=== PATIENT | male | born 1970 ===

== ENCOUNTER 2020-05-30 21:39 | Observation (INO) | payer OTHER ==
[~2020-05-30] VITALS: Ht 167.6 cm; Wt 68.0 kg
[2020-05-30] MEDS ORDERED: KETOROLAC TROMETHAMINE 30 MG/ML VIAL IV STA (22:07)
[2020-05-30] MEDS ORDERED: ONDANSETRON HCL INJ 2MG/ML 2ML 2 MG/ML VIAL IV STA (22:07)
[2020-05-30] MEDS ORDERED: SODIUM CHLORIDE 0.9% 50ML 50 ML ONE (22:27)
[2020-05-30] MEDS ORDERED: IOPAMIDOL 370 MG/ML 200 ML INFUS..BTL INJ ONE (22:28)
--- NOTE | 2020-05-30 23:31 | Diagnostic Imaging Report ---
EXAM: CT Abdomen and Pelvis WITH contrast INDICATION: ^RLQ pain/ IV contrast ^20200530 ^2241 COMPARISON: None. TECHNIQUE: Abdomen and pelvis were scanned utilizing a multidetector helical scanner from the lung base to the pubic symphysis after administration of IV contrast. Coronal and sagittal reformations were obtained. Dose modulation, iterative reconstruction, and/or weight based adjustment of the mA/kV was utilized to reduce the radiation dose to as low as reasonably achievable. Routine protocol was performed. Scan was performed when during portal venous phase. IV CONTRAST: 100 mL of Isovue-370 ORAL CONTRAST: None COMPLICATIONS: None RADIATION DOSE: Total DLP: 481.82 mGy*cm Estimated effective dose: (DLP x 0.015 x size factor) mSv CTDIvol has been reviewed. It is below the limits set by the Radiation Protocol Committee (RPC). FINDINGS: LINES and TUBES: None. LOWER THORAX: Unremarkable HEPATOBILIARY: No focal hepatic lesions. No biliary ductal dilation. GALLBLADDER: Contracted. No radio-opaque stones or sludge. No wall thickening. SPLEEN: No splenomegaly. PANCREAS: No focal masses or ductal dilatation. Hypodensities in pancreatic tail, probably invagination of surrounding fat. ADRENALS: No adrenal nodules KIDNEYS/URETERS: Kidneys enhance symmetrically. No hydronephrosis. No cystic or solid mass lesions. Right renal inferior pole subcentimeter hypodensity is too small to characterize. No stones. GI TRACT: No abnormal distention, wall thickening, or evidence of bowel obstruction. Appendix is mildly distended up to 8 mm without significant surrounding inflammation. There is mild mucosal hyperenhancement. PELVIC ORGANS/BLADDER: Unremarkable. LYMPH NODES: No lymphadenopathy. VESSELS: Unremarkable. PERITONEUM / RETROPERITONEUM: No free air or fluid. BONES: Left iliac sclerotic focus, likely a bone island. SOFT TISSUES: Unremarkable. IMPRESSION: 1. Minimally distended appendix without significant surrounding inflammation. Early appendicitis cannot be entirely excluded in the appropriate clinical context. Otherwise, no acute inflammatory process in the abdomen/pelvis. Findings discussed with Dr. Ruiz at 11:25 pm, on 05/30/2020. Signed by: Dr. Dave Edward MD on 05/30/2020 11:28 PM
[2020-05-30] MEDS ORDERED: ONDANSETRON HCL INJ 2MG/ML 2ML 2 MG/ML VIAL IV PRN (23:45)
[2020-05-31] VITALS (9 sets, daily range): BP systolic 118–140; BP diastolic 78–99
[2020-05-31] MEDS ORDERED: PIPERACILLIN/TAZO 4.5 GM 100 ML IV ONE
--- NOTE | 2020-05-31 00:07 | NUR ---
[facility] NOTIFIED OF TRANSFER TO PATIENTS ETA 45 MINUTES TO A HOUR
--- OUTSIDE RECORDS SUMMARY | 2020-05-31 00:14 | XMS REPORT | Continuity of Care Document ---
Author Author [facility] t Organization [facility] Address [address] [place] [address] Phone Unavailable Care Team Providers Care Security Police Name Role Phone Nikki DOMINGUEZ Attphymahsa Unavailable Problems This patient has no known problems. Allergies, Adverse Reactions, Alerts This patient has no known allergies or adverse reactions. Medications This patient has no known medications. Procedures This patient has no known procedures. Results Test Description Test Time Test Comments Results Result Comments Source CT ABD/PEL WITH CONTRAST-HOPD 2020-05-30 23:12:[address] [address] Patient Name: HANNAH DESAI MR #: [id number] : 1970 Age/Sex: 50/M Req #: [id number] Adm Physician: Ordered by: MADI DOMINGUEZ MD Report #: [id number] Location: [facility] Room/Bed: Procedure: [id number] HOPD/CT ABD/PEL WITH CONTRAST-HOPD Exam Date: 05/30/20 Exam Time: 2241 REPORT STATUS: Signed EXAM: CT Abdomen and Pelvis WITH contrast INDICATION: RLQ pain/ IV contrast 20200530 COMPARISON: None. TECHNIQUE: Abdomen and pelvis were scanned utilizing a multidetector helical scanner from the lung base to the pubic symphysis after administration of IV contrast. Coronal and sagittal reformations were obtained. Dose modulation, iterative reconstruction, and/or weight based adjustment of the mA/kV was utilized to reduce the radiation dose to as low as reasonably achievable. Routine protocol was performed. Scan was performed when during portal venous phase. IV CONTRAST: 100 mL of Isovue-370 ORAL CONTRAST: None COMPLICATIONS: None RADIATION DOSE: Total DLP: 481.82 mGy*cm Estimated effective dose: (DLP x 0.015 x size factor) mSv CTDIvol has been reviewed. It is below the limits set by the Radiation Protocol Committee (RPC). FINDINGS: LINES and TUBES: None. LOWER THORAX: Unremarkable HEPATOBILIARY: No focal hepatic lesions. No biliary ductal dilation. GALLBLADDER: Contracted. No radio- opaque stones or sludge. No wall thickening. SPLEEN: No splenomegaly. PANCREAS: No focal masses or ductal dilatation. Hypodensities in pancreatic tail, probably invagination of surrounding fat. ADRENALS: No adrenal nodules KIDNEYS/URETERS: Kidneys enhance symmetrically. No hydronephrosis. No cystic or solid mass lesions. Right renal inferior pole subcentimeter hypodensity is too small to characterize. No stones. GI TRACT: No abnormal distention, wall thickening, or evidence of bowel obs truction. Appendix is mildly distended up to 8 mm without significant surrounding inflammation. There is mild mucosal hyperenhancement. PELVIC ORGANS/BLADDER: Unremarkable. LYMPH NODES: No lymphadenopathy. VESSELS: Unremarkable. PERITONEUM / RETROPERITONEUM: No free air or fluid. BONES: Left iliac sclerotic focus, likely a bone island. SOFT TISSUES: Unremarkable. IMPRESSION: 1. Minimally distended appendix without significant surrounding inflammation. Early appendicitis cannot be entirely excluded in the appropriate clinical context. Otherwise, no acute inflammatory process in the abdomen/pelvis. Findings discussed with Dr. Dominguez at 11:25 pm, on 05/30/2020. Signed by: Dr. Dave Madden MD on 05/30/2020 11:28 PM Dictated By: DAVE MADDEN MD 27 Transcribed By: PAVEL on 05/30/202327 COPY TO: MADI DOMINGUEZ MD
[2020-05-31] MEDS ORDERED: PIPER-TAZ 3.375 GM 50 ML IV ONE ×2 (00:15→00:30)
[2020-05-31] MEDS ORDERED: PIPER-TAZ 3.375 GM 50 ML ONE (00:16)
[2020-05-31] MEDS ORDERED: SODIUM CHLORIDE 0.9% 1000ML 1,000 ML ONE (00:16)
[2020-05-31] MEDS: SODIUM CHLORIDE 0.9% 1000ML 1,000 ML IV SCH ×4 (00:19→23:45)
--- NOTE | 2020-05-31 00:38 | Emergency Department Note ---
History of Present Illnes History of Present Illness Chief Complaint: Abdominal Complaints History of Present Illness This is a 50 year old male with 3 day history of right lower quadrant pain. Is constant and dull. Pain is worse with movement. Episode 1-1/2 month ago which resolved on its own and patient did not seek medical attention. Patient says the pain is radiating to his right lower back. He's got no diarrhea. No melena, no hematochezia. There has been no vomiting. He's had nausea. No fever or chills. No sick contacts. 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 No dysuria hematuria urgency or frequency. Past medical problems and no previous surgeries. Historian: Patient, Friend Arrival Mode: Car Onset (how long ago): day(s) (3) Radiation: Reports non-radiation Severity: moderate Duration (how long): day(s) (3) Timing of current episode: constant Progression: unable to specify Chronicity: new Context: Denies recent illness, Denies trauma/injury Relieving factors: none Exacerbating factors: movement Associated symptoms: Reports malaise; Denies chest pain, Denies cough, Denies rash Past Medical/Family History Physician Review I have reviewed the patient's past medical and family history. Any updates have been documented here. Past Medical History Recent Fever: No Clinical Suspicion of Infectio: No New/Unexplained Change in Ment: No Past Medical History: None Past Surgical History: None Social History Smoking Cessation: Never Smoker Counseling Performed: No Alcohol Use: Occasional Any Illegal Drug Use: No Physically hurt or threatened: No Other Any Pre-Existing Lines (PICC,: No Review of Systems Review of Systems EENTM: Reports no symptoms Cardiovascular: Reports no symptoms Gastrointestinal: Reports as per HPI Genitourinary: Reports no symptoms Integumentary: Denies rash Neurological: Denies headache, Denies numbness Psychological: Reports no symptoms Hematological/Lymphatic: Reports no symptoms Physical Exam Related Data Allergies: Coded Allergies: No Known Allergies (Unverified , 05/30/20) Triage Vital Signs Vital Signs Date Time Temp Pulse Resp B/P (MAP) Pulse Ox O2 Delivery O2 Flow Rate FiO2 05/30/20 21:58 98.5 87 16 146/86 100 Physical Exam CONSTITUTIONAL Constitutional: Present well-developed, Present well-nourished HENT HENT: Present normocephalic, Present atraumatic, Present oropharynx clear/moist, Present nose normal EYES Eyes: Reports PERRL, Reports conjunctivae normal NECK Neck: Present ROM normal PULMONARY Pulmonary: Present effort normal, Present breath sounds normal CARDIOVASCULAR Cardiovascular: Present regular rhythm, Present heart sounds normal, Present capillary refill normal, Present normal rate GASTROINTESTINAL Abdominal: Present tender (mild RLQ); Absent guarding, Absent mass, Absent rebound, Absent left CVA tenderness, Absent right CVA tenderness GENITOURINARY SKIN Skin: Absent rash MUSCULOSKELETAL Musculoskeletal: Absent edema, Absent deformity, Absent tenderness NEUROLOGICAL Neurological: Present alert, Present oriented x 3 PSYCHOLOGICAL Psychological: Present mood/affect normal, Present behavior normal Results Laboratory Laboratory comments LFT, Dorie WNL. BMP WNL. WBC 5.6, UA trace blood, neg Nit, neg owen, neg glu/niranjan/ket Imaging Imaging Comments EXAM: CT Abdomen and Pelvis WITH contrast INDICATION: ^RLQ pain/ IV contrast ^20200530 ^2241 COMPARISON: None. TECHNIQUE: Abdomen and pelvis were scanned utilizing a multidetector helical scanner from the lung base to the pubic symphysis after administration of IV contrast. Coronal and sagittal reformations were obtained. Dose modulation, iterative reconstruction, and/or weight based adjustment of the mA/kV was utilized to reduce the radiation dose to as low as reasonably achievable. Routine protocol was performed. Scan was performed when during portal venous phase. IV CONTRAST: 100 mL of Isovue-370 ORAL CONTRAST: None COMPLICATIONS: None RADIATION DOSE: Total DLP: 481.82 mGy*cm Estimated effective dose: (DLP x 0.015 x size factor) mSv CTDIvol has been reviewed. It is below the limits set by the Radiation Protocol Committee (RPC). FINDINGS: LINES and TUBES: None. LOWER THORAX: Unremarkable HEPATOBILIARY: No focal hepatic lesions. No biliary ductal dilation. GALLBLADDER: Contracted. No radio-opaque stones or sludge. No wall thickening. SPLEEN: No splenomegaly. PANCREAS: No focal masses or ductal dilatation. Hypodensities in pancreatic tail, probably invagination of surrounding fat. ADRENALS: No adrenal nodules KIDNEYS/URETERS: Kidneys enhance symmetrically. No hydronephrosis. No cystic or solid mass lesions. Right renal inferior pole subcentimeter hypodensity is too small to characterize. No stones. GI TRACT: No abnormal distention, wall thickening, or evidence of bowel obstruction. Appendix is mildly distended up to 8 mm without significant surrounding inflammation. There is mild mucosal hyperenhancement. PELVIC ORGANS/BLADDER: Unremarkable. LYMPH NODES: No lymphadenopathy. VESSELS: Unremarkable. PERITONEUM / RETROPERITONEUM: No free air or fluid. BONES: Left iliac sclerotic focus, likely a bone island. SOFT TISSUES: Unremarkable. IMPRESSION: 1. Minimally distended appendix without significant surrounding inflammation. Early appendicitis cannot be entirely excluded in the appropriate clinical context. Otherwise, no acute inflammatory process in the abdomen/pelvis. Assessment & Plan Medical Decision Making MDM Differential diagnosis includes, but is not limited to: Appendicitis, constipation, kidney stone, UTI, pyelonephritis, urinary retention, small bowel obstruction, gastroenteritis. CT shows mildly dilated, but no stranding. No fever and normal WBC. Results show boarderline appendicitis - will give antibiotics and admit for surgeon evaluation. Patient works from [employer] and needs to be cleared for travel. Reassessment Reassessment 11:[address] Juarez for admit, await call back. No return call from Dr. Juarez - Spoke with Dr. Mclaughlin who accepted. Spoke with Dr. Evans who accepted consult. Assessment & Plan Final Impression: (1) Appendicitis Depart Disposition: ADMITTED Last Vital Signs Date Time Temp Pulse Resp B/P (MAP) Pulse Ox O2 Delivery O2 Flow Rate FiO2 05/30/20 21:58 98.5 87 16 146/86 100 MADI DOMINGUEZ MD May 30, 2020 22:21
[2020-05-31] MEDS ORDERED: MORPHINE SULFATE 2 MG/ML SYR 1ML IV PRN (01:00)
[2020-05-31 04:59] LABS: BASOPHILS % 0.6 % (0.0-1.0); EOSINOPHILS # (AUTO) 0.1 (0.0-0.4); EOSINOPHILS % 1.9 % (0.0-6.0); HEMATOCRIT 38.8 % (38.2-49.6); LYMPHOCYTES # (AUTO) 1.5 (1.0-3.2); LYMPHOCYTES % 32.3 % (18.0-39.1); MEAN CORPUSCULAR HGB CONC 33.5 g/dL (31-35); MEAN CORPUSCULAR VOLUME 89.6 fL (81-99); MONOCYTES # (AUTO) 0.4 (0.2-0.8); MONOCYTES % 8.1 % (4.4-11.3); NEUTROPHILS # (AUTO) 2.7 (2.1-6.9); NEUTROPHILS % 56.9 % (38.7-80.0); PLATELET COUNT 127 x10e3/uL (140-360); RED BLOOD COUNT 4.33 x10e6/uL (4.3-5.7); RED CELL DISTRIBUTION WIDTH 12.3 % (11.7-14.4)
[2020-05-31 05:20] LABS: ANION GAP 12.8 mmol/L (8-16); BLOOD UREA NITROGEN 17 mg/dL (7-26); BUN/CREATININE RATIO 15 (6-25); CALCIUM 8.7 mg/dL (8.4-10.2); CARBON DIOXIDE 27 mmol/L (22-29); CHLORIDE 104 mmol/L (98-107); CREATININE, SERUM 1.11 mg/dL (0.72-1.25); EST GLOMERULAR FILTRATION RATE > 60 ML/MIN (60-); GLUCOSE 98 mg/dL (74-118); POTASSIUM 3.8 mmol/L (3.5-5.1); SODIUM 140 mmol/L (136-145)
--- NOTE | 2020-05-31 06:43 | NUR ---
H&P cc: abdominal pain HPI: 50yoM, a shipping worker, developed abdominal pain and nausea. Pain initially started weeks ago, in RLQ. Imaging suggested appendicitis. Now pain is down o 2/10. Some sacral pain and hip pain now. PMH: none PSHx: none Allergies; see emr FH/SH: ; no cigs; works on ship Meds; see MAR ROS: no f/c/s/N/V/D/REGALADO/cp/sob/skin rash/confusion/vision changes/mood changes/focal limb weakness v/s; revd PE tired appearing anicteric ns1s2 mod bs soft; nd; RLQ minimally tender; no rebound no leg edema skin dry n. affect a&ox3; sandra labs/meds revd A/P: 50yoM Acute appendicitis- IVF; IV abx; sx eval Abdominal pain- prn pain meds Prop: scd Dispo: f/u sx plan; If no surgery and patient continues to improve, then start CLD and re-eval. LANCE PARKER MD, PHD.
[2020-05-31] MEDS ORDERED: MORPHINE SULFATE INJ 4 MG/ML INJ 1ML IV PRN (08:15)
--- NOTE | 2020-05-31 08:36 | Consultation ---
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 The patient stated he had pain about a month and a half ago that resolved and again, the pain started 3 days ago, was worse with certain movements. He had some nausea. The patient says the pain is gone now. He was evaluated CT of the abdomen and pelvis which revealed enlargement of the appendix, but no inflammation. The patient has not had any fever. No diarrhea. PAST MEDICAL HISTORY: The patient has no chronic medical problems. MEDICATIONS: There were no current medications. ALLERGIES: THERE WERE NO KNOWN ALLERGIES. PAST SURGICAL HISTORY: No previous surgeries. FAMILY HISTORY: Noncontributory. SOCIAL HISTORY: The patient works on a ship. He does not smoke cigarettes. Occasionally drinks alcohol. REVIEW OF SYSTEMS: As stated above. He has had no fever, no weight loss. PHYSICAL EXAMINATION: GENERAL: The patient is awake and alert, in no distress. VITAL SIGNS: Normal. He is afebrile. HEENT: Sclerae is not icteric. NECK: Has no masses. LUNGS: Equal breath sounds are clear bilaterally. CARDIAC: Regular rate and rhythm. Normal S1, S2 without murmur, S3, S4. There is no jugular venous distention. ABDOMEN: Soft. There is no tenderness. No mass. No organomegaly. There are no signs of peritonitis. EXTREMITIES: No edema. Pulses are palpable. NEUROLOGIC: Intact. LABORATORY TESTS: White blood cell count is normal with normal differential, hemoglobin and hematocrit are normal. Chemistries also are normal. ASSESSMENT: A 50-year-old male with right lower quadrant abdominal pain is now resolved. This could be a viral syndrome. There are no findings that would warrant surgical intervention. Appendicitis is very unlikely. PLAN: To start him on regular diet. If he tolerates diet, he should be able to be discharged. Thank you for asking me to see Mr. Beth. MD KARLA Rojas/ERIN /[id number]
[2020-05-31] MEDS ORDERED: ACETAMINOPHEN 325 MG TAB PO PRN (16:15)
--- NOTE | 2020-05-31 17:10 | NUR ---
SPOKE WITH [facility] [employer] REGARDING PATIENT'S DISPOSITION, PATIENT NEEDS, "AN ORDER OR NOTICE IN THE DISCHARGE THAT HE WILL BE OKAY TO FLY," IN ORDER TO TO FLY HOME TO THE [facility].
--- NOTE | 2020-05-31 19:00 | NUR ---
RECEIVED PATIENT IN BEDSIDE SHIFT REPORT. PATIENT SITTING UP IN BED. MILD PAIN TO LOWER BACK/HIPS REPORTED, ONLY HAS PAIN TO RLQ WHEN AMBULATING. NO S&S OF DISTRESS NOTED. IV RUNNING NS @ 125ML/HR TO R AC, ASYMPTOMATIC. BED LOCKED IN LOWEST POSITION, SIDE RAILSUPX2, CALL LIGHT IN REACH.
[2020-06-01] VITALS: BP 100/64
[2020-06-01 04:00] VITALS: BP 132/97
[2020-06-01 05:20] LABS: BASOPHILS % 0.8 % (0.0-1.0); EOSINOPHILS # (AUTO) 0.1 (0.0-0.4); EOSINOPHILS % 2.7 % (0.0-6.0); HEMATOCRIT 41.7 % (38.2-49.6); HEMOGLOBIN 13.5 g/dL (14.0-18.0); LYMPHOCYTES # (AUTO) 1.5 (1.0-3.2); LYMPHOCYTES % 29.9 % (18.0-39.1); MEAN CORPUSCULAR HEMOGLOBIN 28.5 pg (28-32); MEAN CORPUSCULAR HGB CONC 32.4 g/dL (31-35); MEAN CORPUSCULAR VOLUME 88.2 fL (81-99); MONOCYTES # (AUTO) 0.4 (0.2-0.8); MONOCYTES % 7.6 % (4.4-11.3); NEUTROPHILS # (AUTO) 2.9 (2.1-6.9); NEUTROPHILS % 58.8 % (38.7-80.0); PLATELET COUNT 138 x10e3/uL (140-360); RED BLOOD COUNT 4.73 x10e6/uL (4.3-5.7); RED CELL DISTRIBUTION WIDTH 12.3 % (11.7-14.4)
[2020-06-01 05:45] LABS: ALANINE AMINOTRANSFERASE 15 IU/L (0-55); ALBUMIN 4.5 g/dL (3.5-5.0); ALBUMIN/GLOBULIN RATIO 1.7 (0.8-2.0); ALKALINE PHOSPHATASE 50 IU/L (40-150); ANION GAP 13.2 mmol/L (8-16); BLOOD UREA NITROGEN 12 mg/dL (7-26); BUN/CREATININE RATIO 14 (6-25); CALCIUM 9.1 mg/dL (8.4-10.2); CARBON DIOXIDE 27 mmol/L (22-29); CHLORIDE 103 mmol/L (98-107); CREATININE, SERUM 0.87 mg/dL (0.72-1.25); EST GLOMERULAR FILTRATION RATE > 60 ML/MIN (60-); GLUCOSE 98 mg/dL (74-118); POTASSIUM 4.2 mmol/L (3.5-5.1); SODIUM 139 mmol/L (136-145)
--- NOTE | 2020-06-01 06:14 | NUR ---
D/C summary Principal Dx: Acute appendicitis- IVF; IV abx; sx eval; Recovered without surgery. tolerating diet- d/c home Abdominal pain- prn pain meds Secondary Dx: none Prop: scd Dispo: f/u sx plan; If no surgery and patient continues to improve, then start CLD and re-eval. d/c home stable f/u pcp 2 days d/c>35mins LANCE PARKER MD, PHD.
[2020-06-01] MEDS ORDERED: ZOFRAN4 MG PO (06:16)
[2020-06-01] MEDS ORDERED: SENNA LAXATIVE8.6 MG PO (06:16)
[2020-06-01] MEDS ORDERED: TYLENOL325 M2 PO (06:16)
--- NOTE | 2020-06-01 07:05 | NUR ---
RCD PT AT BED PT IS ALERT AND ORIENTED RESTING ON BED IV PATENT BED LOW AND LOCKED CALL LIGHT IN REACH
[2020-06-01] MEDS: SODIUM CHLORIDE 0.9% 1000ML 1,000 ML IV SCH (07:45)
[2020-06-01 08:00] VITALS: BP 103/84
[2020-06-01 08:56] VITALS: BP 103/84
--- NOTE | 2020-06-01 10:40 | NUR ---
PATIENT WENT HOME WITH AGENCY RIDE AND SECURITY( PATIENT FROM [facility])IN SAFE CONDITION
== END 2020-06-01 10:40 | disposition home or self-care (01) ==
LOC: FSED 22:08 → ERHOLD 23:54 → MED/SURG 05-31 01:27
PROVIDERS: ADMIT Internal Medicine; ATTEND Internal Medicine
DX: K35.80 Unspecified acute appendicitis (principal); Z11.59 Encounter for screening for other viral diseases
CPT/HCPCS: 36415; 74177; 80048; 80053; 80076; 81003; 82948; 85025; 96361; 96374; 96376; 99284; G0378; J1885; J2270; J2405; J2543; J7030; Q9967; U0002